=== PATIENT | female | born 1980 | race Caucasian/White ===

== ENCOUNTER → 2017-04-15 | Outpatient (REF) | payer BC | LOC: M SFHCCLAY 10:18 | PROVIDERS: ATTEND Family Medicine | DX: Z12.4 Encounter for screening for malignant neoplasm of cervix (principal) ==

== ENCOUNTER → 2018-03-28 | Outpatient (REF) | payer BC | LOC: M SFHCLERA 09:07 | DX: L72.11 Pilar cyst (principal) | CPT/HCPCS: 88304 ==

== ENCOUNTER → 2018-07-26 | Outpatient (REF) | payer BC ==
[2018-07-28 14:17] LABS: HPV HYBRID CAPTURE II Negative (Negative)
== END ==
LOC: M SFHCWAGY 10:02
DX: Z12.4 Encounter for screening for malignant neoplasm of cervix (principal); Z01.419 Encounter for gynecological examination (general) (routine) without abnormal findings
CPT/HCPCS: G0123

== ENCOUNTER → 2018-08-11 | Outpatient (CLI) | payer BC | LOC: M WHC 09:56 | DX: Z12.31 Encounter for screening mammogram for malignant neoplasm of breast (principal); Z80.41 Family history of malignant neoplasm of ovary; Z84.81 Family history of carrier of genetic disease | CPT/HCPCS: 77067 ==

== ENCOUNTER → 2018-09-19 | Outpatient (REF) | payer BC ==
[2018-09-19 18:32] LABS: ALBUMIN 4.2 GM/DL (3.2-5.2); ALBUMIN/GLOBULIN RATIO 1.27 (1.00-1.93); ALKALINE PHOSPHATASE 43 U/L (45-117); ALT/SGPT 36 U/L (12-78); ANION GAP 6 MEQ/L (8-16); AST/SGOT 30 U/L (7-37); BILIRUBIN,TOTAL 0.8 MG/DL (0.2-1.0); BLOOD UREA NITROGEN 15 MG/DL (7-18); CALCIUM LEVEL 8.9 MG/DL (8.5-10.1); CARBON DIOXIDE LEVEL 29 MEQ/L (21-32); CHLORIDE LEVEL 102 MEQ/L (98-107); CREATININE FOR GFR 0.79 MG/DL (0.55-1.30); FERRITIN 62 NG/ML (8-252); GLOMERULAR FILTRATION RATE > 60.0 (>60); GLUCOSE, FASTING 90 MG/DL (70-100); IRON (FE) 206 UG/DL (50-170); PERCENT SATURATION 53.6 % (13.2-45.0); POTASSIUM SERUM 4.3 MEQ/L (3.5-5.1); SODIUM LEVEL 137 MEQ/L (136-145); TOTAL IRON BINDING CAPACITY 384 UG/DL (250-450); TOTAL PROTEIN 7.5 GM/DL (6.4-8.2)
[2018-09-19 18:34] LABS: BASO % 0.1 % (0.0-1.0); EOS # 0.1 10^3/uL (0.0-0.50); HEMATOCRIT 42.2 % (36.0-47.0); HEMOGLOBIN 14.3 g/dl (12.0-15.5); IMMATURE GRANULOCYTE % 0.4 % (0-3.0); LYMPH # 2.1 10^3/uL (1.5-4.5); MEAN CORPUSCULAR HEMOGLOBIN 32.3 pg (27.0-33.0); MEAN CORPUSCULAR HGB CONC 33.9 g/dl (32.0-36.5); MEAN CORPUSCULAR VOLUME 95.3 fl (80.0-96.0); MONO # 0.6 10^3/uL (0.0-0.8); MONO % 7.1 % (0.0-5.0); NEUTROPHILS % 64.4 % (36.0-66.0); PLATELET COUNT, AUTOMATED 244 10^3/uL (150-450); RED BLOOD COUNT 4.43 10^6/uL (4.00-5.40); RED CELL DISTRIBUTION WIDTH 11.9 % (11.5-14.5); WHITE BLOOD COUNT 7.7 10^3/uL (4.0-10.0)
[2018-09-19 19:06] LABS: FOLATE 20.9 NG/ML (>5.4)
[2018-09-21 08:47] LABS: TRANSFERRIN 309 mg/dL (200-370)
== END ==
LOC: M SFHCCLAY 11:46
DX: R79.0 Abnormal level of blood mineral (principal)
CPT/HCPCS: 82746

== ENCOUNTER → 2019-08-14 | Outpatient (CLI) | payer BC ==
--- NOTE | 2019-08-14 11:39 | REPMRS ---
Patient History The patient states she had a clinical breast exam in 07/2019. Family history of breast cancer under age 50 in mother, prostate cancer at age 50 or over in maternal uncle, ovarian cancer under age 50 in maternal aunt. Taking hormonal contraceptives for 11 years. 3D TOMOSYNTHESIS WAS PERFORMED. Digital Woman Screen Mammo: August 14, 2019 - Exam #: [id number] Bilateral CC and MLO view(s) were taken. Technologist: Mariah De Anda, Technologist Prior study comparison: August 11, 2018, bilateral digital woman screen mammo performed at [facility]. FINDINGS: There are scattered fibroglandular densities. There has been no change in the appearance of the mammogram from the prior studies. There is a mild amount of residual fibroglandular tissue which is fairly symmetric. There is no interval development of dominant mass, architectural distortion, or clustered microcalcification suggestive of malignancy. Assessment: BI-RADS/ACR category 1 mammogram. Negative Mammogram. Recommendation Routine screening mammogram in 1 year (for women over age 40). This mammogram was interpreted with the aid of an FDA-approved computer-aided dectection system. THE LIFETIME RISK OF BREAST CANCER IS 41.2%, THEREFORE SUPPLEMENTAL SCREENING MRI OF THE BREASTS IS RECOMMENDED IN 6 MONTHS. Electronically Signed By: Twin Rehman MD 08/14/19 [id number]
== END ==
LOC: M WHC 10:36
PROVIDERS: ATTEND Nurse Practitioner Women's Health
DX: Z12.31 Encounter for screening mammogram for malignant neoplasm of breast (principal)

== ENCOUNTER → 2020-08-16 | Outpatient (REF) | payer OTHER | LOC: M SFHCWAGY 13:17 | PROVIDERS: ATTEND Nurse Practitioner Women's Health | DX: Z12.4 Encounter for screening for malignant neoplasm of cervix (principal); Z01.419 Encounter for gynecological examination (general) (routine) without abnormal findings ==

== ENCOUNTER → 2020-08-16 | Outpatient (CLI) | payer OTHER ==
--- NOTE | 2020-08-16 10:52 | REPMRS ---
Patient History The patient states she had a clinical breast exam in 08/2020. Family history of breast cancer under age 50 in mother, prostate cancer at age 50 or over in maternal uncle, ovarian cancer under age 50 in maternal aunt. Taking hormonal contraceptives for 12 years. 3D TOMOSYNTHESIS WAS PERFORMED. SADIA Underwood. Digital Woman Screen Mammo: August 16, 2020 - Exam #: [id number] Bilateral CC and MLO view(s) were taken. Technologist: Mariah De Anda, Technologist Prior study comparison: August 14, 2019, bilateral digital woman screen mammo performed at [facility]. August 11, 2018, bilateral digital woman screen mammo performed at [facility]. FINDINGS: The breast tissue is heterogeneously dense. This may lower the sensitivity of mammography. There has been no change in the appearance of the mammogram from the prior studies. There is a moderate amount of residual fibroglandular tissue which is fairly symmetric. There is no interval development of dominant mass, areas of architectural distortion, or clustered microcalcification typical of malignancy. Assessment: BI-RADS/ACR category 1 mammogram. Negative Mammogram. Recommendation Routine screening mammogram in 1 year (for women over age 40). This mammogram was interpreted with the aid of an FDA-approved computer-aided dectection system. THE LIFETIME RISK OF BREAST CANCER IS 40.2%, THEREFORE SUPPLEMENTAL SCREENING MRI OF THE BREASTS IS RECOMMENDED IN 6 MONTHS. Electronically Signed By: Twin Rehman MD 08/16/20 [id number]
== END ==
LOC: M WHC 09:16
PROVIDERS: ATTEND Nurse Practitioner Women's Health
DX: Z12.31 Encounter for screening mammogram for malignant neoplasm of breast (principal); Z80.3 Family history of malignant neoplasm of breast; Z80.42 Family history of malignant neoplasm of prostate; Z80.41 Family history of malignant neoplasm of ovary

== ENCOUNTER → 2021-03-10 | Outpatient (CLI) | payer OTHER ==
[~2021-03-10] MED LIST: PROHANCE 279.3MG/ML 15ML VIAL As Ordered ONE
--- NOTE | 2021-03-10 18:31 | REP ---
INDICATION: HIGH RISK FOR BREAST CA, FM HX. COMPARISON: MRI 02/08/2019, mammogram 08/16/2020. TECHNIQUE: Three Ngozi MRI imaging was performed with a dedicated breast coil. Axial, coronal, and sagittal T1 and T2 weighted scans were obtained with and without fat saturation in the usual fashion. The study includes dynamically acquired post gadolinium-enhanced imaging with image subtraction. Maximum intensity projection and multi planar reformation imaging is included as well. This study is interpreted with the aid of [employer], an FDA approved computer aided detection (CAD) software program, on a dedicated breast MRI workstation. The gadolinium enhancement dose is 15 mL of intravenous ProHance. FINDINGS: Mild scattered fibroglandular tissue is present bilaterally. There are couple scattered cysts in the right breast in a dilated duct behind the nipple. There is mild background parenchymal enhancement. There is no axillary adenopathy. There is no suspicious enhancing mass or morphologic abnormality. IMPRESSION: BI-RADS category 2, benign bilateral breast MRI. There are a couple of small cysts and a dilated duct in the right breast. No suspicious enhancing mass or morphologic abnormality. <Electronically signed by Twin Rehman > 03/10/21 4000
== END ==
LOC: M RAD 15:56
PROVIDERS: ATTEND Nurse Practitioner Women's Health
DX: Z12.31 Encounter for screening mammogram for malignant neoplasm of breast (principal); Z80.3 Family history of malignant neoplasm of breast; N60.11 Diffuse cystic mastopathy of right breast

== ENCOUNTER → 2021-08-19 | Outpatient (CLI) | payer OTHER ==
--- NOTE | 2021-08-19 10:41 | REPMRS ---
Patient History The patient states she had a clinical breast exam in August 2021. Family history of breast cancer under age 50 in mother, prostate cancer at age 50 or over in maternal uncle, ovarian cancer under age 50 in maternal aunt. Taking hormonal contraceptives for 12 years. Patient states no breast complaints today. Patient has signed MRS History Sheet. Digital Woman Screen Mammo: August 19, 2021 - Exam #: [id number] Bilateral CC and MLO view(s) were taken. Technologist: Mariposa Lemus, Technologist Prior study comparison: August 16, 2020, bilateral digital woman screen mammo performed at [facility]. August 14, 2019, bilateral digital woman screen mammo performed at [facility]. August 11, 2018, bilateral digital woman screen mammo performed at [facility]. FINDINGS: There are scattered fibroglandular densities. The Volpara volumetric breast density category is:B. There has been no change in the appearance of the mammogram from the prior studies. There is a mild amount of scattered fibroglandular density which is fairly symmetric. There is no interval development of dominant mass, architectural distortion, or grouped microcalcification suggestive of malignancy. 3-D tomosynthesis shows no additional findings. Assessment: BI-RADS/ACR category 1 mammogram. Negative Mammogram. Recommendation Breast MRI of both breasts in 6 months. Routine screening mammogram of both breasts in 1 year (for women over age 40). This patient's [facility] Lifetime Breast Cancer Risk is estimated at 39.2 %. Patients whose estimated lifetime breast cancer risk assessment is greater than 20% merit annual screening breast MRI scanning in addition to annual mammography. This mammogram was interpreted with the aid of an FDA-approved computer-aided dectection system. Electronically Signed By: Patrick Zamarripa MD 08/19/21 [id number]
== END ==
LOC: M WHC 09:22
PROVIDERS: ATTEND Nurse Practitioner Women's Health
DX: Z12.31 Encounter for screening mammogram for malignant neoplasm of breast (principal); Z80.3 Family history of malignant neoplasm of breast; Z80.42 Family history of malignant neoplasm of prostate; Z80.41 Family history of malignant neoplasm of ovary

== ENCOUNTER → 2022-04-03 | Outpatient (CLI) | payer OTHER ==
[~2022-04-03] MED LIST changes: -PROHANCE 279.3MG/ML 15ML VIAL As Ordered ONE; +PROHANCE 279.3MG/ML 15ML VIAL ONE
== END ==
LOC: M PLAIMG 13:53
PROVIDERS: ATTEND Nurse Practitioner Women's Health
DX: R92.2 Inconclusive mammogram (principal); Z80.3 Family history of malignant neoplasm of breast; Z91.89 Other specified personal risk factors, not elsewhere classified; N60.11 Diffuse cystic mastopathy of right breast
CPT/HCPCS: A9576; C8908

== ENCOUNTER → 2022-10-30 | Outpatient (REF) | payer OTHER | LOC: M PLALAB 09:46 | PROVIDERS: ATTEND Nurse Practitioner Family | DX: Z12.4 Encounter for screening for malignant neoplasm of cervix (principal); R87.610 Atypical squamous cells of undetermined significance on cytologic smear of cervix (ASC-US) | CPT/HCPCS: 87624; G0123 ==

== ENCOUNTER → 2022-10-30 | Outpatient (CLI) | payer OTHER | LOC: M WHC 07:21 | PROVIDERS: ATTEND Nurse Practitioner Family | DX: Z12.31 Encounter for screening mammogram for malignant neoplasm of breast (principal) ==

== ENCOUNTER → 2023-07-09 | Outpatient (CLI) | payer OTHER ==
[~2023-07-09] MED LIST changes: +PROHANCE 279.3MG/ML 5ML VIAL ONE
== END ==
LOC: M PLAIMG 08:34
PROVIDERS: ATTEND Nurse Practitioner Family
DX: Z91.89 Other specified personal risk factors, not elsewhere classified (principal); Z12.39 Encounter for other screening for malignant neoplasm of breast; Z80.3 Family history of malignant neoplasm of breast
CPT/HCPCS: A9576; C8908

== ENCOUNTER → 2023-09-08 | Outpatient (REF) | payer OTHER ==
[2023-09-08 12:27] LABS: APPEARANCE, URINE HAZY (CLEAR); BACTERIA, URINE AUTO NEGATIVE (NEGATIVE); BILIRUBIN, URINE AUTO NEGATIVE (NEGATIVE); BLOOD, URINE BLOOD NEGATIVE (NEGATIVE); COLOR, URINE YELLOW (YELLOW); GLUCOSE, URINE (UA) AUTO NEGATIVE (NEGATIVE); KETONE, URINE AUTO NEGATIVE (NEGATIVE); LEUKOCYTE ESTERASE, URINE AUTO NEGATIVE (NEGATIVE); NITRITE, URINE AUTO NEGATIVE (NEGATIVE); PROTEIN, URINE AUTO NEGATIVE (NEGATIVE); RBC, URINE AUTO 0 /HPF (0-3); SPECIFIC GRAVITY URINE AUTO 1.014 (1.002-1.035); SQUAMOUS EPITHELIAL CELL UR AU 5 /HPF (0-6); UROBILINOGEN, URINE AUTO 0.2 mg/dL (0.0-2.0); WBC, URINE AUTO 0 /HPF (0-3)
[2023-09-08 12:30] LABS: BASO % 0.2 % (0.0-1.0); EOS # 0.1 10^3/uL (0.0-0.5); HEMATOCRIT 43.5 % (36.0-47.0); HEMOGLOBIN 14.5 g/dl (12.0-15.5); LYMPH # 1.9 10^3/uL (1.5-5.0); LYMPH % 31.4 % (24.0-44.0); MEAN CORPUSCULAR HEMOGLOBIN 31.7 pg (27.0-33.0); MEAN CORPUSCULAR HGB CONC 33.3 g/dl (32.0-36.5); MEAN CORPUSCULAR VOLUME 95.2 fl (80.0-96.0); MONO # 0.5 10^3/uL (0.0-0.8); MONO % 8.2 % (2.0-8.0); NEUTROPHILS # 3.5 10^3/uL (1.5-8.5); NEUTROPHILS % 57.9 % (36.0-66.0); PLATELET COUNT, AUTOMATED 258 10^3/uL (150-450); RED BLOOD COUNT 4.57 10^6/uL (4.00-5.40)
[2023-09-08 12:31] LABS: C REACTIVE PROTEIN QUANTITATIV < 0.40 MG/DL (<1.0)
[2023-09-08 12:33] LABS: IRON (FE) 55 UG/DL (50-170); PERCENT SATURATION 16.2 % (13.2-45.0); RHEUMATOID FACTOR QUANT < 3.5 IU/ML (<14); TOTAL IRON BINDING CAPACITY 339 UG/DL (250-425)
[2023-09-08 12:36] LABS: ALBUMIN 4.1 G/DL (3.2-5.2); ALKALINE PHOSPHATASE 45 U/L (46-116); ALT/SGPT 28 U/L (7.0-40); AST/SGOT 27 U/L (<34); BILIRUBIN,TOTAL 0.5 MG/DL (0.3-1.2); BLOOD UREA NITROGEN 14 MG/DL (9-23); CALCIUM LEVEL 8.8 MG/DL (8.5-10.1); CARBON DIOXIDE LEVEL 27 MMOL/L (20-31); CHLORIDE LEVEL 105 MMOL/L (98-107); CHOLESTEROL LEVEL 193 MG/DL (<200); CHOLESTEROL RISK RATIO 2.51 (<5); CORTISOL AM 24.9 UG/DL (4.3-22.4); CREATININE FOR GFR 0.68 MG/DL (0.55-1.30); FERRITIN 60.7 NG/ML (7.3-270.7); GLOMERULAR FILTRATION RATE > 60.0 (>58); GLUCOSE, FASTING 104 MG/DL (60-100); HDL CHOLESTEROL 76.7 MG/DL (>40); LDL CHOLESTEROL 106.3 MG/DL (<100); NON-HDL-C 116.3 MG/DL; POTASSIUM SERUM 4.7 MMOL/L (3.5-5.1); SODIUM LEVEL 138 MMOL/L (136-145); TRIGLYCERIDES LEVEL 50 MG/DL (<150)
[2023-09-08 12:48] LABS: HEMOGLOBIN A1c 4.6 % (4.0-6.0)
[2023-09-08 13:16] LABS: ERYTHROCYTE SEDIMENTATION RATE 5 mm/hr (0-20)
[2023-09-09 23:07] LABS: ANA (HEP2) Negative (.); CYCLIC CITRULLINATED PEPTIDE 2 units (0-19)
== END ==
LOC: M SFHCCLAY 07:26
PROVIDERS: ATTEND Family Medicine
DX: Z00.00 Encounter for general adult medical examination without abnormal findings (principal); E16.2 Hypoglycemia, unspecified; M25.50 Pain in unspecified joint; R53.83 Other fatigue; E83.19 Other disorders of iron metabolism; R35.0 Frequency of micturition; Z13.220 Encounter for screening for lipoid disorders

== ENCOUNTER → 2023-12-17 | Outpatient (REF) | payer OTHER | LOC: M SFHCWAGY 12:56 | PROVIDERS: ATTEND Nurse Practitioner Family | DX: Z12.4 Encounter for screening for malignant neoplasm of cervix (principal) | CPT/HCPCS: 87624; G0123 ==

== ENCOUNTER → 2023-12-17 | Outpatient (CLI) | payer OTHER | LOC: M WHC 07:52 | PROVIDERS: ATTEND Nurse Practitioner Family | DX: Z12.31 Encounter for screening mammogram for malignant neoplasm of breast (principal); R92.323 Mammographic fibroglandular density, bilateral breasts ==

== ENCOUNTER → 2024-02-10 | Outpatient (REF) | payer OTHER ==
[2024-02-10 13:00] LABS: CORTISOL AM 24.3 UG/DL (4.3-22.4)
[2024-02-10 13:02] LABS: ALKALINE PHOSPHATASE 48 U/L (46-116); ALT/SGPT 33 U/L (7.0-40); AST/SGOT 27 U/L (<34); BILIRUBIN,TOTAL 0.6 MG/DL (0.3-1.2); BLOOD UREA NITROGEN 19 MG/DL (9-23); CARBON DIOXIDE LEVEL 32 MMOL/L (20-31); CHLORIDE LEVEL 104 MMOL/L (98-107); CREATININE FOR GFR 0.72 MG/DL (0.55-1.30); GLOMERULAR FILTRATION RATE > 60.0 (>58); GLUCOSE, FASTING 98 MG/DL (60-100); POTASSIUM SERUM 4.8 MMOL/L (3.5-5.1); SODIUM LEVEL 139 MMOL/L (136-145); TOTAL PROTEIN 6.6 G/DL (5.7-8.2)
[2024-02-10 13:04] LABS: TOTAL 25(OH) VITAMIN D 29.4 NG/ML (20.0-100.0)
[2024-02-10 14:15] LABS: ACETONE/KETONE 0.12 MMOL/L (0.02-0.27)
== END ==
LOC: M LABDRAWC 11:32
PROVIDERS: ATTEND Internal Medicine
DX: E16.2 Hypoglycemia, unspecified (principal)

== ENCOUNTER → 2024-03-16 | Outpatient (REF) | payer OTHER | LOC: M LABDRAWC 12:57 | PROVIDERS: ATTEND Internal Medicine | DX: R73.9 Hyperglycemia, unspecified (principal) ==

== ENCOUNTER → 2024-12-21 | Outpatient (CLI) | payer OTHER | LOC: M WHC 09:54 | PROVIDERS: ATTEND Family Medicine | DX: Z12.31 Encounter for screening mammogram for malignant neoplasm of breast (principal); R92.323 Mammographic fibroglandular density, bilateral breasts ==

== ENCOUNTER → 2025-07-23 | Outpatient (REF) | payer OTHER ==
[2025-07-23 17:43] LABS: ALT/SGPT 35 U/L (7.0-40); AST/SGOT 37 U/L (<34); C REACTIVE PROTEIN QUANTITATIV < 0.50 MG/DL (<1.0); CALCIUM LEVEL 9.6 MG/DL (8.5-10.1); CARBON DIOXIDE LEVEL 29 MMOL/L (20-31); CHLORIDE LEVEL 104 MMOL/L (98-107); CHOLESTEROL LEVEL 212 MG/DL (<200); CHOLESTEROL RISK RATIO 2.29 (<5); CREATININE FOR GFR 0.68 MG/DL (0.55-1.30); GLOMERULAR FILTRATION RATE > 90.0 (>58); IRON (FE) 128 UG/DL (50-170); LDL CHOLESTEROL 106.8 MG/DL (<100); MAGNESIUM LEVEL 2.0 MG/DL (1.8-2.4); NON-HDL-C 119.8 MG/DL; POTASSIUM SERUM 4.5 MMOL/L (3.5-5.1); RHEUMATOID FACTOR QUANT < 3.5 IU/ML (<14); SODIUM LEVEL 141 MMOL/L (136-145); TRIGLYCERIDES LEVEL 65 MG/DL (<150)
[2025-07-23 17:45] LABS: FREE T4 1.17 NG/DL (0.89-1.76)
[2025-07-23 17:49] LABS: BASO # 0.0 10^3/uL (0.0-0.2); BASO % 0.3 % (0.0-1.0); EOS # 0.1 10^3/uL (0.0-0.5); EOS % 1.0 % (0.0-3.0); LYMPH # 1.8 10^3/uL (1.5-5.0); LYMPH % 24.9 % (24.0-44.0); MONO # 0.5 10^3/uL (0.0-0.8); MONO % 6.8 % (2.0-8.0); NEUTROPHILS # 4.7 10^3/uL (1.5-8.5); NEUTROPHILS % 66.4 % (36.0-66.0); PLATELET COUNT, AUTOMATED 273 10^3/uL (150-450)
[2025-07-23 17:56] LABS: ESTIMATED AVERAGE GLUCOSE 100.0 MG/DL (60-110)
[2025-07-23 18:01] LABS: ERYTHROCYTE SEDIMENTATION RATE 3 mm/hr (0-20)
== END ==
LOC: M SFHCCLAY 09:47
PROVIDERS: ATTEND Family Medicine
DX: E16.2 Hypoglycemia, unspecified (principal); E83.19 Other disorders of iron metabolism; M25.50 Pain in unspecified joint; R53.83 Other fatigue; Z13.220 Encounter for screening for lipoid disorders; Z00.00 Encounter for general adult medical examination without abnormal findings